=== PATIENT | male | born 1990 | race Caucasian/White ===

== ENCOUNTER 2016-12-28 09:05 | Emergency (ER) | payer BC ==
[~2016-12-28] VITALS: Ht 167.6 cm; Wt 68.0 kg
[2016-12-28] MEDS ORDERED: METH27TA PO (09:13)
--- NOTE | 2016-12-28 09:34 | NUR ---
Patient was seen by MD. GARCIA and follow up instructions given and explained to patient who states he understands all instructions.
== END 2016-12-28 09:35 | disposition home or self-care (01) ==
LOC: ER 09:05
DX: F07.81 Postconcussional syndrome (principal); Z88.0 Allergy status to penicillin
CPT/HCPCS: 99281; A4663